=== PATIENT | female | born 1995 | race Caucasian/White ===

== ENCOUNTER 2024-09-10 13:45 | Inpatient (IN) | payer SELFPAY ==
[2024-09-10] VITALS (66 sets, daily range): BP systolic 102–142; BP diastolic 55–90; PULSE 32–108; RESP 16–20; TEMP 36.8–37.3; O2SAT 85–100; BMI 28.3
[2024-09-10] MEDS: Lactated Ringers 1,000 ML 50 ML IV (14:05)
[2024-09-10] MEDS: Penicillin G Pot 5,000,000 UNITS in 0.9% Normal Saline (100mL MB+) 100 ML 150 UNITS IV (14:13)
[2024-09-10 14:16] LABS: Absolute Lymphocyte Count 1.47 X10^3/uL (0.83-4.51); Absolute Neutrophil Count 6.5 X10^3/uL (2.0-7.7); Basophil# 0.05 X10^3/uL; Basophil% 0.6 % (0-1); Eosinophil# 0.03 X10^3/uL; Eosinophils% 0.3 % (0-5); Hematocrit 39.7 % (37-47); Hemoglobin 13.3 g/dL (12.0-15.0); Lymphocyte # 1.47 X10^3/ul (0.83-4.51); Lymphocyte % 17.1 % (19-41); Mean Corp Hgb Conc 33.5 g/dL (32-36); Mean Corpuscular Hgb 28.6 pg (27.0-32.0); Mean Corpuscular Volume 85.4 fL (81-99); Mean Platelet Vol. 10.9 fl (6.2-12.0); Monocyte# 0.53 X10^3/uL; Monocyte% 6.2 % (0-10); NRBC Flagged by Analyzer 0 % (0-5); Neutrophil # 6.48 X10^3/uL (2.7-7.7); Neutrophil % 75.2 % (47-70); Platelet Count 296 K/mm3 (150-450); RBC Distribution Width SD 43.3 fl (35.1-43.9); Red Blood Count 4.65 M/mm3 (4.2-5.4); White Blood Count 8.6 K/mm3 (4.4-11.0)
[2024-09-10 14:58] LABS: Syphilis Antibodies Non-reactive
[2024-09-10] MEDS: Lactated Ringers 1,000 ML 999 ML IV (17:02)
[2024-09-10] MEDS: fentaNYL-bupivacaine (epidural) 100 ML BAG EPIDURAL (18:02)
[2024-09-10] MEDS: Penicillin G 3,000,000 Units 50 ML 100 UNITS IV (18:38)
[2024-09-10] MEDS: Oxytocin 15 Units/NS 250ml 15 UNITS/250 ML IV.SOLN 334 UNITS IV (19:13)
--- NOTE | 2024-09-10 19:48 | PCM.HP.OB ---
HPI - General General Date of Admission: 09/10/24 HPI Narrative CARLO MCKENZIE, is a 28 F who presents 40w1d presents in active labor. Contractions started yesterday after membrane sweep in office. Increased throughout the night and became more painful and frequent this am. No leakage of fluid or vaginal bleeding. Maternal Data Information ADELAIDA Calculator Estimated Delivery Date Method Current WG Current Estimate 09/09/24 Manual 40w 1d PFSH PFSH Medical History (Updated 09/10/24 @ 19:55 by Amber Reilly CNM) Prolonged rupture of membranes, delivered Gestational diabetes Home Medications ?Medication ?Instructions ?Recorded ?Last Taken ?Type cholecalciferol (vitamin D3) 125 125 mcg PO DAILY 09/10/24 09/09/24 History mcg (5,000 unit) tablet (Vitamin D3) vit no.95-ferrous 1 tab PO DAILY PRN 09/10/24 09/09/24 History fumarate 28 mg-folic acid 800 mcg tablet () Allergy/AdvReac Type Severity Reaction Status Date / Time No Known Allergies Allergy Verified 09/10/24 13:22 Social History Smoking Status: Never smoker History Elective abortions Hx Para 1 Spontaneous abortions Hx # Term Pregnancies Ectopic pregnancies Hx # Pregnancies Multiple births # of living children NST FHR Rate Baby A Baseline: 130 Variability:: Moderate Accelerations:: 15 x 15 Decelerations:: Variable FHR Category:: Category II Uterine Activity:: every 2-3 min strong ROS Constitutional Constitutional: Reports systems reviewed and no addt'l complaints, except as documented; Denies headache(s) Eyes Eyes: Denies acute decrease in peripheral vision, blurry vision or change in vision ENT HEENT: Reports systems reviewed and no addt'l complaints, except as documented Cardiovascular Cardiovascular: Denies chest pain or dizziness Respiratory/Chest Respiratory/Chest: Denies cough, dyspnea, dyspnea on exertion, shortness of breath at rest or shortness of breath with exertion Gastrointestinal Gastrointestinal: Denies abdominal pain, diarrhea, nausea or vomiting Musculoskeletal Musculoskeletal: Denies limited range of motion Integumentary Integumentary: Reports systems reviewed and no addt'l complaints, except as documented Neurologic Neurologic: Reports systems reviewed and no addt'l complaints, except as documented Psychiatric Psychiatric: Reports systems reviewed and no addt'l complaints, except as documented Endocrine Endocrinology: Reports systems reviewed and no addt'l complaints, except as documented Hematologic/Lymphatic Hematologic/Lymphatic: Reports systems reviewed and no addt'l complaints, except as documented Allergic/Immunologic Allergic/Immunologic: Reports systems reviewed and no addt'l complaints, except as documented Vital Signs Vital Signs Vital Signs: 09/10/24 13:30 09/10/24 13:30 09/10/24 13:30 Temperature Temperature Source Temporal Pulse Rate 83 Respiratory Rate Blood Pressure 133/90 H BP Systolic 133 BP Diastolic 90 Pulse Ox 09/10/24 13:30 09/10/24 13:30 09/10/24 14:18 Temperature 98.3 F Temperature Source Pulse Rate Respiratory Rate 16 Blood Pressure 126/87 H BP Systolic 126 BP Diastolic 87 Pulse Ox 09/10/24 14:18 09/10/24 14:18 09/10/24 14:18 Temperature Temperature Source Temporal Pulse Rate 85 Respiratory Rate 16 Blood Pressure BP Systolic BP Diastolic Pulse Ox 09/10/24 14:18 09/10/24 15:54 09/10/24 15:54 Temperature 99.2 F H Temperature Source Pulse Rate 88 Respiratory Rate Blood Pressure 123/83 H BP Systolic 123 BP Diastolic 83 Pulse Ox 09/10/24 17:53 09/10/24 17:53 09/10/24 17:53 Temperature Temperature Source Temporal Pulse Rate 93 Respiratory Rate Blood Pressure 123/67 H BP Systolic 123 BP Diastolic 67 Pulse Ox 09/10/24 17:53 09/10/24 17:53 09/10/24 17:54 Temperature 99.2 F H Temperature Source Pulse Rate 87 Respiratory Rate 20 H Blood Pressure BP Systolic BP Diastolic Pulse Ox 09/10/24 17:54 09/10/24 17:59 09/10/24 17:59 Temperature Temperature Source Pulse Rate 108 H Respiratory Rate Blood Pressure BP Systolic BP Diastolic Pulse Ox 98 98 09/10/24 17:59 09/10/24 17:59 09/10/24 18:03 Temperature Temperature Source Pulse Rate 104 H Respiratory Rate Blood Pressure 114/75 114/72 BP Systolic 114 114 BP Diastolic 75 72 Pulse Ox 09/10/24 18:03 09/10/24 18:04 09/10/24 18:04 Temperature Temperature Source Pulse Rate 32 L 102 H Respiratory Rate Blood Pressure BP Systolic BP Diastolic Pulse Ox 100 09/10/24 18:09 09/10/24 18:09 09/10/24 18:10 Temperature Temperature Source Pulse Rate 97 91 Respiratory Rate Blood Pressure 137/88 H BP Systolic 137 BP Diastolic 88 Pulse Ox 09/10/24 18:10 09/10/24 18:11 09/10/24 18:11 Temperature Temperature Source Pulse Rate 88 Respiratory Rate Blood Pressure BP Systolic BP Diastolic Pulse Ox 100 94 09/10/24 18:11 09/10/24 18:14 09/10/24 18:14 Temperature Temperature Source Pulse Rate 90 96 Respiratory Rate Blood Pressure 113/67 BP Systolic 113 BP Diastolic 67 Pulse Ox 09/10/24 18:14 09/10/24 18:18 09/10/24 18:18 Temperature Temperature Source Pulse Rate 86 Respiratory Rate Blood Pressure 111/76 BP Systolic 111 BP Diastolic 76 Pulse Ox 100 09/10/24 18:20 09/10/24 18:20 09/10/24 18:23 Temperature Temperature Source Pulse Rate 92 Respiratory Rate Blood Pressure 125/69 H BP Systolic 125 BP Diastolic 69 Pulse Ox 100 09/10/24 18:23 09/10/24 18:25 09/10/24 18:25 Temperature Temperature Source Pulse Rate 91 86 Respiratory Rate Blood Pressure BP Systolic BP Diastolic Pulse Ox 99 09/10/24 18:30 09/10/24 18:30 09/10/24 18:30 Temperature Temperature Source Pulse Rate 100 Respiratory Rate Blood Pressure 142/78 H BP Systolic 142 BP Diastolic 78 Pulse Ox 99 09/10/24 18:35 09/10/24 18:35 09/10/24 18:36 Temperature Temperature Source Pulse Rate 100 97 Respiratory Rate Blood Pressure BP Systolic BP Diastolic Pulse Ox 92 09/10/24 18:36 09/10/24 18:38 09/10/24 18:38 Temperature Temperature Source Pulse Rate 80 Respiratory Rate Blood Pressure 119/79 BP Systolic 119 BP Diastolic 79 Pulse Ox 86 09/10/24 18:41 09/10/24 18:41 09/10/24 18:43 Temperature Temperature Source Pulse Rate 82 89 Respiratory Rate Blood Pressure BP Systolic BP Diastolic Pulse Ox 100 09/10/24 18:43 09/10/24 18:44 09/10/24 18:44 Temperature Temperature Source Pulse Rate 80 Respiratory Rate Blood Pressure 120/79 BP Systolic 120 BP Diastolic 79 Pulse Ox 85 09/10/24 18:46 09/10/24 18:46 09/10/24 18:49 Temperature Temperature Source Pulse Rate 78 Respiratory Rate Blood Pressure 109/78 BP Systolic 109 BP Diastolic 78 Pulse Ox 100 09/10/24 18:49 09/10/24 18:49 09/10/24 18:51 Temperature Temperature Source Pulse Rate 83 90 Respiratory Rate Blood Pressure BP Systolic BP Diastolic Pulse Ox 90 09/10/24 18:51 Temperature Temperature Source Pulse Rate Respiratory Rate Blood Pressure BP Systolic BP Diastolic Pulse Ox 100 Weight Weight: 186 lb Body Mass Index (BMI) 28.3 Physical Exam Const alert and oriented x3 General Appearance: cooperative Orientation / Consciousness: awake, oriented to person, oriented to place and oriented to time Exam Limitations: no limitations HEENT normocephalic Head and Scalp: normal to inspection, normocephalic and atraumatic Face and Sinus: normal facial exam Eyes General Eye: normal appearance of both eyes Neck full ROM Chest Chest: symmetrical chest wall rise Resp normal respiratory effort and normal air movement Auscultation: clear to auscultation bilaterally Cardio regular rate, regular rhythm, S1 normal heart sound, S2 normal heart sound, no murmurs, no rub, no gallops and no clicks GI normal to inspection, nondistended, normoactive bowel sounds and non-tender appearance of the vagina normal Bladder / Kidney Exam: no CVA tenderness Back/Spine normal ROM Extremity normal to inspection and full ROM Skin no rashes or lesions noted Neuro oriented x3 and moves all extremities Sensorium / Orientation: awake, alert and oriented to person Labs Labs Labs: Blood Type O POSITIVE Antibody Screen NEGATIVE Hct 39.7 % (37-47) Hgb 13.3 g/dL (12.0-15.0) Syphilis Total Ab Non-reactive RPR negative HIV negative HBsAG negative Hep C negative Rubella immune 1hr GCt negative GC/CT negative O positive GBS positive Assessment & Plan (1) 40 weeks gestation of : (2) Active labor at term: (3) History of delivery of macrosomal : COMMENT: 8lb 15oz (4) History of gestational diabetes: (5) Rh negative state in antepartum period: COMMENT: o negative PLAN: Plan 1) Admit to labor and delivery 2) Routine labs 3) Continuous EFM 4) Pain management upon request 5) Dr.Russell aguayo physician and notified of patient status, above assessment, and plan.
[2024-09-10] MEDS: Oxytocin 15 Units/NS 250ml 15 UNITS/250 ML IV.SOLN 83 UNITS IV (19:50)
--- NOTE | 2024-09-10 19:56 | OB.VAGDELI_ITS ---
Assessment & Plan (1) Vaginal delivery: (2) Second degree perineal laceration: Maternal Data Information ADELAIDA Calculator Estimated Delivery Date Method Current WG Current Estimate 09/09/24 Manual 40w 1d Vaginal Delivery Maternal Presentation Maternal Presentation: Active Labor Vaginal Delivery Information Procedure Performed: Spontaneous Vaginal Delivery Date of Procedure: 09/10/24 Pre-Procedure Diagnosis: Active labor at term Post-Procedure Diagnosis: , second degree perineal laceration Type of anesthesia: Epidural Estimated Blood Loss: 400ml Time of Delivery: 19:10 Findings Description of procedure: Progressed to complete with urge to push. AROM for small amount of clear fluid. Epidural for pain management. of viable male over second degree perineal laceration and bilateral labial laceration . APGARS 8,9 respectively. Infant head delivered with body immediately forthcoming. CAN x 1, delivered through. Placed on maternal abdomen, strong cry. Mouth and nares suctioned for secretions. Pitocin started for active 3rd stage management. Cord doubly clamped and cut by FOB after pulsations ceased, delayed cord clamping. Placenta delivered intact via oneal, 3 vessel cord intact. Perineum inspected and revealed second degree perineal laceration. Repaired with 3.0 vicryl rapide and epidural. Fundus firm and hemostasis achieved. EBL 400ml. Mom and baby stable, planning to breastfeed. Family bonding well. notified of delivery. Presentation: Vertex Amniotic Membrane Rupture Type: Artificial Amniotic Fluid Description: Clear Placental Delivery Description: Spontaneous Placenta Disposition: [facility] Specimen collected: No Cord Vessel Description: 3 Vessels Cord Entanglement: Around neck x 1, loose Nuchal Cord Compression: Without compression Infant A Gender: Male (1 minute): 8 (5 minute): 9 Delayed Cord Clamping: Yes Retail Representative integrated logistics operations manager: No Post Vaginal Deli Medications given after delivery: IV Pitocin Episiotomy Description: None Laceration: Perineal Extension/lac and 2nd degree Complication Complications: No
[2024-09-10] MEDS: Acetaminophen 500 MG Tablet 1000 MG PO (21:36)
[2024-09-11] VITALS (12 sets, daily range): BP systolic 106–121; BP diastolic 62–76; PULSE 74–90; RESP 16; TEMP 36.6–37.1; O2SAT 97–99
[2024-09-11] MEDS: Acetaminophen 500 MG Tablet 1000 MG PO ×2 (04:22→11:53)
[2024-09-11 05:42] LABS: Absolute Lymphocyte Count 2.02 X10^3/uL (0.83-4.51); Absolute Neutrophil Count 10.1 X10^3/uL (2.0-7.7); Basophil# 0.05 X10^3/uL; Basophil% 0.4 % (0-1); Eosinophil# 0.03 X10^3/uL; Eosinophils% 0.2 % (0-5); Hematocrit 34.4 % (37-47); Hemoglobin 11.5 g/dL (12.0-15.0); Lymphocyte # 2.02 X10^3/ul (0.83-4.51); Lymphocyte % 15.6 % (19-41); Mean Corp Hgb Conc 33.4 g/dL (32-36); Mean Corpuscular Hgb 28.4 pg (27.0-32.0); Mean Corpuscular Volume 84.9 fL (81-99); Mean Platelet Vol. 10.7 fl (6.2-12.0); Monocyte# 0.66 X10^3/uL; Monocyte% 5.1 % (0-10); NRBC Flagged by Analyzer 0 % (0-5); Neutrophil # 10.14 X10^3/uL (2.7-7.7); Neutrophil % 78.2 % (47-70); Platelet Count 243 K/mm3 (150-450); RBC Distribution Width SD 43.4 fl (35.1-43.9); Red Blood Count 4.05 M/mm3 (4.2-5.4)
[2024-09-11] MEDS: Benzocaine/Lanolin/Aloe Vera 85 GM Spray 1 SPRAY TOPICAL (08:10)
[2024-09-11] MEDS: Ibuprofen 600 MG Tablet PO ×2 (08:10→16:58)
--- NOTE | 2024-09-11 10:03 | PN.OBGYN_ITS ---
Subjective Subjective Patient is doing well this morning. She is up in the bathroom getting ready for the day. She offers no complaints and desires discharge today. Pain is well- controlled. Lochia is normal. She is ambulating and voiding without difficulty. She is tolerating a diet without nausea or vomiting. Objective Data Objective Data Vital Signs: Vital Signs Temp Pulse Resp BP Pulse Ox O2 Del Method 98.0 F 86 16 121/76 H 97 Room Air 09/11/24 07:57 09/11/24 07:57 09/11/24 07:57 09/11/24 07:57 09/11/24 07:57 09/11/24 07:57 Oxygen Delivery Method Room Air Weight: 186 lb Body Mass Index (BMI) 28.3 Intake & Output: Intake and Output for Last 24 Hours 09/09/24 09/10/24 09/11/24 23:59 23:59 23:59 Intake Total 1991.80 / 1990.80 Output Total 650 / 650 300 / 300 Balance 1341.80 / 1341.80 -300 / -300 Lab / Micro Data 09/11/24 05:35 Labs: Laboratory Results - last 24 hr 09/10/24 14:08: WBC 8.6, RBC 4.65, Hgb 13.3, Hct 39.7, MCV 85.4, MCH 28.6, MCHC 33.5, RDW Std Deviation 43.3, RDW Coeff of Ronda 14.0, Plt Count 296, MPV 10.9, Immature Gran % (Auto) 0.600, Neut % (Auto) 75.2 H, Lymph % (Auto) 17.1 L, Gillespie % (Auto) 6.2, Eos % (Auto) 0.3, Baso % (Auto) 0.6, Absolute Neuts (auto) 6.5, Absolute Lymphs (auto) 1.47, Nucleated RBC % 0, Syphilis Total Ab Non-reactive, Blood Type O POSITIVE, Antibody Screen NEGATIVE 09/11/24 05:35: WBC 13.0 H, RBC 4.05 L, Hgb 11.5 L, Hct 34.4 L, MCV 84.9, MCH 28.4, MCHC 33.4, RDW Std Deviation 43.4, RDW Coeff of Ronda 14.0, Plt Count 243, MPV 10.7, Immature Gran % (Auto) 0.500, Neut % (Auto) 78.2 H, Lymph % (Auto) 15.6 L, Gillespie % (Auto) 5.1, Eos % (Auto) 0.2, Baso % (Auto) 0.4, Absolute Neuts (auto) 10.1 H, Absolute Lymphs (auto) 2.02, Nucleated RBC % 0 Physical Exam Const alert and no apparent distress Constitutional Narrative: ambulating around the room General Appearance: comfortable Assessment & Plan (1) Second degree perineal laceration: (2) Vaginal delivery: PLAN: Patient is day 1 from a vaginal delivery. She is doing well and desires discharge. Discharge instructions reviewed. To follow-up in the office.
--- NOTE | 2024-09-11 10:05 | DCINST_ITS ---
Discharge Instructions Diet Discharge Diet: No restrictions DC O2, CPAP, BIPAP needs Home O2 Discharge instructions: No Dressing / Incision Discharge Activity: May Drive and May Shower May resume sexual activity in: 6 weeks Ice area for (Minutes): 15 Weight Bearing Status: Weight bearing as tolerated Lifting Restrictions: nothing heavier than baby Dressing / Incision Call your doctor if you observe: Fever of 101 or Higher, Coldness, Increased Pain, Numbness or Tingling, Inability to urinate, Inability to have a bowel movement, Using more than 1 pad per hour, Shortness of breath, Dizziness, Swelling in the ankles, Chest pain, Increased palpitations (irregular heartbeat), Calf discomfort and Uncontrolled pain Cleanse incision/area with: Soap & Water Follow Up Care Please Follow Up With: Amber Reilly CNM When: 1-2 weeks for early 6 weeks for exam Test Results: Test results from this visit will be discussed in further detail at your follow- up appointment, if applicable. Discharge Plan Admission Admit Date/Time: 09/10/24 13:45 Primary Reason for Your Visit: delivery Attending Provider: Amber Reilly Primary Care Provider: Care Physician,Holli Primary Instructions Patient Instructions: After a Vaginal Discharge Orders/Prescriptions Prescriptions: Continued PNV cmb#95-ferrous fumarate-FA [] 28 mg iron- 800 mcg tablet 1 tab PO DAILY PRN (Reason: ) cholecalciferol (vitamin D3) [Vitamin D3] 125 mcg (5,000 unit) tablet 125 mcg PO DAILY Referrals / Follow Up: Care Physician,No Primary [Primary Care Provider] - Disposition Disposition (needs filled in before D/C Order can be placed): Home, Self Care
[2024-09-11] MEDS: FLU VACC 2024-25(6MOS UP)/PF 45 MCG/0.5 ML SYRINGE IM (13:03)
--- NOTE | 2024-09-15 13:14 | NURSING ---
Follow up phone call questions asked during visit. Patient states she is doing well, denies any headaches, visual disturbances, flu like symptoms, or Baby Blues. States her bleeding is minimal. See consult for feeding. Patient states she was satisfied with her care and denies any questions about her discharge instructions.
== END 2024-09-11 20:40 | disposition home or self-care (01) | DRG 807 ==
LOC: WPOUT 14:07 → WP 14:07
PROVIDERS: Admitting Provider Advanced Practice Midwife; Referring Provider Advanced Practice Midwife; Visit Provider Advanced Practice Midwife
DX: O70.1 Second degree perineal laceration during delivery (principal); Z37.0 Single live birth; O26.893 Other specified pregnancy related conditions, third trimester; O69.81X0 Labor and delivery complicated by cord around neck, without compression, not applicable or unspecified; Z67.91 Unspecified blood type, Rh negative; Z86.32 Personal history of gestational diabetes; Z3A.40 40 weeks gestation of pregnancy
CPT/HCPCS: 59025; 59050; 85025; 86780; 86850; 86900; 86901; 90656; 99221; G0378

== ENCOUNTER → 2025-08-20 | Outpatient (CLI) | payer MEDICAID, SELFPAY ==
[2025-08-20 17:57] LABS: Hematocrit 39.7 % (37-47); Hemoglobin 13.3 g/dL (12.0-15.0); Immature Granulocytes Count 0.010 X10^3/uL (0.0-0.0); Mean Corp Hgb Conc 33.5 g/dL (32-36); Mean Corpuscular Volume 86.3 fL (81-99); Mean Platelet Vol. 10.0 fl (6.2-12.0); NRBC Flagged by Analyzer 0 % (0-5); Platelet Count 434 K/mm3 (150-450); RBC Distribution Width CV 12.5 % (11.6-14.6); RBC Distribution Width SD 39.0 fl (35.1-43.9); Red Blood Count 4.60 M/mm3 (4.2-5.4); White Blood Count 5.3 K/mm3 (4.4-11.0)
[2025-08-20 18:38] LABS: AST(SGOT) 14 U/L (<=31); Alanine Aminotransfer ALT/SGPT 12 U/L (<=34); Albumin, Serum 4.5 g/dL (3.5-5.0); Alkaline Phosphatase 40 U/L (35-104); Anion Gap 11 (5-15); BUN 11 mg/dL (4-19); BUN/Creat Ratio 16.5 RATIO (10-20); Calcium,Total 9.2 mg/dL (7.6-11.0); Carbon Dioxide 24.7 mmol/L (21.0-32.0); Chloride 105 mmol/L (98-108); Cholesterol 128 mg/dL (<=200); Globulin 2.7 g/dL (2.2-4.2); Glucose 96 mg/dL (70-99); Low Density Lipoprotein Calc. 73 mg/dL; Potassium 3.4 mmol/L (3.3-5.1); Triglycerides 40 mg/dL; Very Low Density Lipoprotein 8 mg/dL (5-40); cholesterol:hdl ratio screen 2.84
[2025-08-20 20:35] LABS: Iron 51 ug/dL (50-170); Iron Binding Capacity,Total 347 ug/dL (250-450); Iron Binding Capacity,Unsat 296 ug/dL (228-428)
[2025-08-22 04:07] LABS: PROGESTERONE 0.3 ng/mL (.)
[2025-08-25 22:07] LABS: Estrogen, Total, Serum 127 pg/mL (.)
== END | disposition home or self-care (01) ==
PROVIDERS: PCP Family Medicine; Referring Provider Family Medicine; Visit Provider Family Medicine
DX: Z13.220 Encounter for screening for lipoid disorders (principal); R53.83 Other fatigue; Z13.1 Encounter for screening for diabetes mellitus; Z80.3 Family history of malignant neoplasm of breast; F53.0 Postpartum depression
CPT/HCPCS: 36415; 80053; 80061; 82672; 83036; 83540; 83550; 84144; 84443; 85025